=== PATIENT | male | born 1990 | race Caucasian/White ===

== ENCOUNTER 2022-03-09 16:49 | Emergency (ER) | payer MEDICAID ==
[~2022-03-09] VITALS: Ht 177.8 cm; Wt 91.0 kg
[2022-03-09] MEDS ORDERED: SODIUM CHLORIDE 0.9% 1,000 ML IV ONE ×3 (17:15→19:45)
[2022-03-09] MEDS ORDERED: LORAZEPAM 2MG/ML CPJ IV STA (17:15)
[2022-03-09 17:47] LABS: CHLORIDE 103 mEq/L (98-107)
[2022-03-09 18:05] LABS: BASOPHILS % 0.2 % (0.0-2.0); HEMATOCRIT. 46.5 % (42.0-52.0); LYMPHOCYTES % 9.2 % (20.0-50.0); MEAN CORPUSCULAR HEMOGLOBIN 31.4 pg (28.0-32.0); MEAN CORPUSCULAR VOLUME 91.4 fL (80.0-94.0); MEAN PLATELET VOLUME 11.3 fl (7.4-10.4); MONOCYTES % 7.7 % (2.0-8.0); NEUTROPHILS % 82.9 % (40.0-76.0); PLATELET 187 x1000/uL (130-400); RED BLOOD CELL COUNT 5.08 mill/uL (4.7-6.1); RED CELL DISTRIBUTION WIDTH 13.9 % (11.6-14.6)
[2022-03-09 18:10] LABS: CREATINE KINASE 3840 IU/L (39-308); ETHANOL BLOOD < 10 mg/dL
[2022-03-09] MEDS ORDERED: POTASSIUM CHLORIDE 20MEQ TABLET SR PO ONE (19:45)
[2022-03-09 21:04] VITALS: BP 117/85
== END 2022-03-09 21:45 | disposition left against medical advice (07) ==
LOC: ER 16:49
DX: R45.1 Restlessness and agitation (principal); T43.655A Adverse effect of methamphetamines, initial encounter; N28.9 Disorder of kidney and ureter, unspecified; M62.82 Rhabdomyolysis; R51.9 Headache, unspecified; Z98.890 Other specified postprocedural states; Y92.9 Unspecified place or not applicable
CPT/HCPCS: 36415; 70450; 71045; 80053; 80307; 80320; 80329; 82550; 84484; 85025; 93005; 96374; 99285; J2060; J7030; Z7610; G0480